=== PATIENT | female | born 1980 | race Caucasian/White ===

== ENCOUNTER 2021-08-01 07:00 | Inpatient (IN) ==
[2021-08-01] MEDS ORDERED: Lactated Ringers 1000 ml BAG 1,000 ML IV ONE ×2 (07:14→10:35)
[2021-08-01 08:33] LABS: ABS Lymphocytes 1.6 10^3/ul (1.0-4.8); ABS Monocytes 0.7 10^3/ul (0-0.8); ABS Neutrophils 8.9 10^3/ul (1.5-7.7); Eosinophil % 0.2 %; Hematocrit 35 % (35-47); Hemoglobin 11.5 g/dL (12.0-16.0); Lymphocyte % 13.9 %; Mean Corpuscular HGB Conc 33 g/dL (31-36); Mean Corpuscular Hemoglobin 27 pg (27-31); Mean Corpuscular Volume 82 fL (80-97); Mean Platelet Volume 7.2 fL (7.4-10.4); Platelet Count 289 10^3/uL (150-450); Red Blood Count 4.21 10^6 /uL (3.70-4.87); Red Cell Distribution Width 17 % (10-15); White Blood Count 11.3 10^3/uL (3.5-10.8)
[2021-08-01 08:38] LABS: ALT 12 U/L (7-52); AST 13 U/L (13-39); Albumin 3.6 g/dL (3.2-5.2); Alkaline Phosphatase 68 U/L (35-149); Anion Gap 11 mmol/L (2-11); Blood Urea Nitrogen 3 mg/dL (6-24); CO2 Carbon Dioxide 20 mmol/L (22-32); Calcium 8.7 mg/dL (8.6-10.3); Chloride 101 mmol/L (101-111); Globulin 3.7 g/dL (2-4); Glucose 104 mg/dL (70-100); Potassium 3.3 mmol/L (3.5-5.0); Sodium 132 mmol/L (135-145); Total Protein 7.3 g/dL (6.4-8.9)
[2021-08-01 08:40] LABS: Rapid COVID-19 Molecular Undetected (Undetected)
[2021-08-01 08:43] LABS: CRP High Sensitivity > 80.00 mg/L (<2.00)
[2021-08-01 08:55] LABS: Urine Appearance Clear; Urine Bilirubin Negative (Negative); Urine Blood 2+ (Negative); Urine Color Yellow; Urine Glucose Negative (Negative); Urine Ketones 2+ (Negative); Urine Nitrite Negative (Negative); Urine Protein Negative (Negative); Urine Specific Gravity 1.006 (1.002-1.030); Urine Urobilinogen Negative (Negative)
[2021-08-01 08:57] LABS: Urine Bacteria 1+ (Absent); Urine Red Blood Cell 1+(3-5/hpf) (Absent); Urine Squamous Epithelial Cell Present (Absent); Urine White Blood Cell Trace(0-5/hpf) (Absent)
[2021-08-01] MEDS ORDERED: Piperacillin/Tazobac ADVAN 3.375 GM in NS 0.9% 100 ml BAG 100 ML IV ONE (10:26)
[2021-08-01 10:34] LABS: Magnesium 1.9 mg/dL (1.9-2.7)
[2021-08-01] MEDS ORDERED: Ondansetron 4 mg VIAL 2 MG/ML 2 ml VIAL IV ONE (10:42)
[2021-08-01] MEDS ORDERED: Ondansetron 4 mg VIAL 2 MG/ML 2 ml VIAL ONE (12:18)
[2021-08-01] MEDS ORDERED: Rocuronium 50 mg VIAL 10 mg/ml 5 ml VIAL (50 mg) ONE (12:18)
[2021-08-01] MEDS ORDERED: Succinylcholine 200 mg VIAL 20 mg/ml 10 ml VIAL (200 mg) ONE (12:18)
[2021-08-01] MEDS ORDERED: fentaNYL 100 mcg/2 ml 50 MCG/ML VIAL ONE ×3 (12:18→15:10)
[2021-08-01] MEDS ORDERED: Lidocaine 2% PF 5 ML VIAL ONE (12:18)
[2021-08-01] MEDS ORDERED: Propofol 10 MG/ML 20 ML BTL ONE (12:18)
[2021-08-01] MEDS ORDERED: Phenylephrine 40 mcg/mL 10mL (400mcg) SYRINGE ONE (12:18)
[2021-08-01] MEDS ORDERED: Lidocaine 1% w EPI 1:100,000 MDV 20 ML VIAL ONE (12:25)
[2021-08-01] MEDS ORDERED: Bupivacaine 0.25% SDV 30 ML ONE (12:25)
[2021-08-01] MEDS ORDERED: Sodium Citrate/Citric Acid LIQ 15 ML UDC ONE (12:42)
[2021-08-01] MEDS ORDERED: Buffered Lidocaine 1% SYRIN 1 ml INTRADERM ONE (12:43)
[2021-08-01] MEDS ORDERED: Sodium Citrate/Citric Acid LIQ 15 ML UDC PO ONE (12:43)
[2021-08-01] MEDS ORDERED: Lactated Ringers 1000 ml BAG 1,000 ML IV SCH (13:00)
[2021-08-01] MEDS ORDERED: Glycopyrrolate IV 0.2 MG/ML 1 ML VIAL ONE (13:53)
[2021-08-01] MEDS ORDERED: Neostigmine Methylsulfate 1 MG/ML 10 ML VIAL (1 mg/ml) ONE (13:53)
[2021-08-01] MEDS ORDERED: Acetaminophen IV 1 GM/100ML 100 ML IV ONE (14:05)
[2021-08-01] MEDS ORDERED: Ondansetron 4 mg VIAL 2 MG/ML 2 ml VIAL IV PRN ×2 (14:18→14:46)
[2021-08-01] MEDS: fentaNYL 100 mcg/2 ml 50 MCG/ML VIAL IV PRN ×4 (14:45→15:20)
[2021-08-01] MEDS ORDERED: Naloxone 0.4 mg VIAL 0.4 mg/ml 1 ml VIAL IV PRN (14:46)
[2021-08-01] MEDS ORDERED: Piperacillin/Tazobactam VIAL 3.375 GM in NS 0.9% 100 ml BAG 100 ML IVPB SCH (15:00)
[2021-08-01] MEDS: NS 0.9% 1000 ml BAG 1,000 ML IV SCH (17:00)
[2021-08-01] MEDS: Piperacillin/Tazobactam VIAL 3.375 GM in NS 0.9% 100 ml BAG 100 ML IVPB SCH (17:47)
[2021-08-01] MEDS: HYDROmorphone 0.5 MG/0.5 ML SYRINGE IV SLOW PU PRN ×2 (18:13→22:17)
[2021-08-02] MEDS: Piperacillin/Tazobactam VIAL 3.375 GM in NS 0.9% 100 ml BAG 100 ML IVPB SCH ×3 (01:09→17:05)
[2021-08-02] MEDS: HYDROmorphone 0.5 MG/0.5 ML SYRINGE IV SLOW PU PRN ×4 (02:18→15:56)
[2021-08-02 06:44] LABS: ABS Lymphocytes 1.3 10^3/ul (1.0-4.8); ABS Monocytes 0.6 10^3/ul (0-0.8); ABS Neutrophils 7.4 10^3/ul (1.5-7.7); Eosinophil % 0.1 %; Hematocrit 31 % (35-47); Hemoglobin 10.5 g/dL (12.0-16.0); Mean Corpuscular HGB Conc 34 g/dL (31-36); Mean Corpuscular Hemoglobin 28 pg (27-31); Mean Corpuscular Volume 83 fL (80-97); Platelet Count 262 10^3/uL (150-450); Red Blood Count 3.76 10^6 /uL (3.70-4.87); Red Cell Distribution Width 17 % (10-15); White Blood Count 9.3 10^3/uL (3.5-10.8)
[2021-08-02 07:00] LABS: Calcium 7.7 mg/dL (8.6-10.3); Potassium 3.1 mmol/L (3.5-5.0)
[2021-08-02] MEDS: NS 0.9% 1000 ml BAG 1,000 ML IV SCH (12:17)
[2021-08-03] MEDS: Piperacillin/Tazobactam VIAL 3.375 GM in NS 0.9% 100 ml BAG 100 ML IVPB SCH ×3 (00:55→15:30)
[2021-08-03] MEDS: NS 0.9% 1000 ml BAG 1,000 ML IV SCH (01:01)
[2021-08-03 08:59] LABS: ABS Monocytes 0.4 10^3/ul (0-0.8); ABS Neutrophils 6.9 10^3/ul (1.5-7.7); Eosinophil % 0.2 %; Hematocrit 30 % (35-47); Hemoglobin 10.1 g/dL (12.0-16.0); Lymphocyte % 11.9 %; Mean Corpuscular HGB Conc 34 g/dL (31-36); Mean Corpuscular Hemoglobin 28 pg (27-31); Mean Corpuscular Volume 83 fL (80-97); Platelet Count 270 10^3/uL (150-450); Red Blood Count 3.62 10^6 /uL (3.70-4.87); Red Cell Distribution Width 17 % (10-15); White Blood Count 8.3 10^3/uL (3.5-10.8)
[2021-08-03 16:08] VITALS: BP 123/68
== END 2021-08-03 17:10 | disposition home or self-care (01) | DRG 340 ==
LOC: ED 07:00 → MCHOB 14:18
PROVIDERS: ADMIT Surgery; ATTEND Surgery